=== PATIENT | female | born 1940 | race Caucasian/White ===

== ENCOUNTER → 2017-06-13 | Outpatient (CLI) | payer MEDICARE, OTHER | LOC: GMAJ 16:36 | PROVIDERS: ATTEND Family Medicine | DX: R53.1 Weakness (principal) ==

== ENCOUNTER → 2017-08-22 | Outpatient (CLI) | payer MEDICARE, OTHER | LOC: GMA 14:52 | PROVIDERS: ATTEND Physician Assistant | DX: M79.609 Pain in unspecified limb (principal) ==

== ENCOUNTER → 2018-03-08 | Outpatient (CLI) | payer MEDICARE, OTHER | LOC: GMAJ 13:09 | PROVIDERS: ATTEND Family Medicine | DX: I10 Essential (primary) hypertension (principal) ==

== ENCOUNTER → 2018-08-12 | Outpatient (CLI) | payer MEDICARE, OTHER | LOC: GMAJ 17:40 | PROVIDERS: ATTEND Family Medicine | DX: N30.00 Acute cystitis without hematuria (principal) ==

== ENCOUNTER → 2018-09-03 | Outpatient (CLI) | payer MEDICARE, OTHER | LOC: GMAJ 17:28 | PROVIDERS: ATTEND Family Medicine | DX: I10 Essential (primary) hypertension (principal) ==

== ENCOUNTER → 2020-01-16 | Outpatient (CLI) | payer MEDICARE, OTHER ==
--- NOTE | 2020-01-16 17:20 | RAD ---
EXAM: Pelvis CLINICAL HISTORY: HIP PAIN COMPARISON STUDY: None TECHNICAL: AP pelvis FINDINGS: The pelvic ring is intact. Chronic changes of the pubic symphysis. 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 No dislocation. Vascular calcifications are present. IMPRESSION: No acute fracture or dislocation. Electronically signed by: Max Mendoza MD 01/16/2020 5:18 PM [facility]
--- NOTE | 2020-01-17 08:51 | RAD ---
Frontal and sunrise patellar views of the right knee. Indication: KNEE PAIN Comparison: None. Impression: Advanced-severe lateral compartment osteoarthritis with [id number] appearance and significant cortical remodeling. Moderate to severe changes medial and patellofemoral compartments. Large joint line osteophytes. No acute fracture. Examination limited given no lateral view submitted. Given this limitation, no acute fracture identified. Electronically signed by: Saman Harding MD 01/17/2020 8:[address] [facility]
== END ==
LOC: RAD 09:46
PROVIDERS: ATTEND Orthopaedic Surgery
DX: M17.11 Unilateral primary osteoarthritis, right knee (principal); M25.761 Osteophyte, right knee; M25.551 Pain in right hip